=== PATIENT | female | born 1960 | race Caucasian/White ===

== ENCOUNTER 2017-02-09 09:00 | Outpatient (CLI) | payer BC | END 2017-02-09 23:59 | disposition home or self-care (01) | LOC: D.MAMMO 09:00 | DX: Z12.31 Encounter for screening mammogram for malignant neoplasm of breast (principal) ==

== ENCOUNTER 2017-07-06 13:53 | Emergency (ER) | payer OTHER, BC ==
[2017-07-06 17:52] LABS: APPEARANCE CLEAR (CLEAR); BILIRUBIN NEGATIVE (NEGATIVE); COLOR YELLOW (YELLOW); GLUCOSE NEGATIVE (NEGATIVE); KETONE NEGATIVE (NEGATIVE); NITRITE NEGATIVE (NEGATIVE); PROTEIN NEGATIVE (NEGATIVE); SPECIFIC GRAVITY 1.025 (1.005-1.020); UROBILINOGEN NORMAL (NORMAL)
[2017-07-06 17:53] LABS: BACTERIA MODERATE /hpf (NONE SEEN); EPITHELIAL CELLS 0-5 /hpf (0-5); RED CELLS - URINE 0-5 /hpf (0-5); WHITE CELLS - URINE 0-5 /hpf (0-5)
[2017-07-06 18:05] LABS: UDS - AMPHET NEGATIVE QUAL (NEGATIVE); UDS - BARB NEGATIVE QUAL (NEGATIVE); UDS - BENZO NEGATIVE QUAL (NEGATIVE); UDS - COCAINE NEGATIVE QUAL (NEGATIVE); UDS - OPIATE NEGATIVE QUAL (NEGATIVE); UDS - PCP NEGATIVE QUAL (NEGATIVE); UDS - THC NEGATIVE QUAL (NEGATIVE)
== END 2017-07-06 19:15 | disposition home or self-care (01) ==
LOC: D.ER 13:53
PROVIDERS: Nurse Practitioner Family
DX: S16.1XXA Strain of muscle, fascia and tendon at neck level, initial encounter (principal); V43.52XA Car driver injured in collision with other type car in traffic accident, initial encounter; Y93.89 Activity, other specified; Y92.410 Unspecified street and highway as the place of occurrence of the external cause; S29.012A Strain of muscle and tendon of back wall of thorax, initial encounter

== ENCOUNTER → 2017-12-04 19:55 | Outpatient (CLI) | payer BC ==
[~2017-12-04 19:55] MED LIST: ACETAMINOPHEN500 M1 PO; EFFEXOR XR150 MG PO; HYDROCODONE-APA1 TAB PO
[2018-01-11 09:31] VITALS: BMI 34.0
== END | disposition home or self-care (01) ==
LOC: D.MAMMO 13:00
DX: R92.8 Other abnormal and inconclusive findings on diagnostic imaging of breast (principal); N64.4 Mastodynia

== ENCOUNTER → 2017-12-20 23:14 | Outpatient (CLI) | payer BC ==
[2018-01-11 09:31] VITALS: BMI 34.0
== END | disposition home or self-care (01) ==
LOC: D.MAMMO 08:00
DX: N63.20 Unspecified lump in the left breast, unspecified quadrant (principal)

== ENCOUNTER 2018-01-10 05:43 | Day surgery (SDC) | payer BC ==
[~2018-01-10] VITALS: Ht 170.2 cm; Wt 98.4 kg
[2018-01-10] VITALS (11 sets, daily range): BP systolic 104–139; BP diastolic 54–92; BMI 33.7; BMI 34.0
--- NOTE | ~2018-01-10 | OP ---
PATIENT NAME: MUKUL GARNER MEDICAL RECORD: [id number] :56 LOCATION:[facility] ADMISSION DATE: SURGEON: CESAR VILLASENOR MD DATE OF OPERATION: 01/10/2018 PREOPERATIVE DIAGNOSES: 1. Left breast cancer. 2. Depressive disorder. POSTOPERATIVE DIAGNOSES: 1. Left breast cancer. 2. Depressive disorder. 3. Secondary metastatic breast cancer in the left axilla. PROCEDURE: Left simple mastectomy with left axillary lymph node dissection. SURGEON: Cesar Villasenor MD REPORT OF PROCEDURE: The patient's left chest and axilla were prepped and draped in sterile fashion. An ovoid incision was made around the patient's breast, incorporating the patient's nipple areolar complex. Electrocautery was used to dissect the subcutaneous tissues and making very thin flaps on the top and the bottom because the patient's mass was quite large and appeared to be relatively close to the skin edge in the upper outer quadrants. I continued this dissection all the way around the breast and was eventually able to take the breast all the way off of the pectoral fascia from the sternum to the superior aspect of the abdominal muscles proceeding to the clavicle and over to the axilla. Once I had the breast removed, it was sent off for permanent specimen. I felt in the patient's axilla, there were multiple very firm lymph nodes compatible with recent PET CT scan, which looked to be evident for metastatic disease. I went ahead and elected to just perform an axillary lymph node dissection. We continued our dissection for the first and second level lymph nodes incorporating all grossly positive lymph nodes and fatty tissue in that plane. I was able to find the long thoracic, thoracodorsal, and median pectoral nerves and all of these were preserved. Once the specimen was removed, I inspected the remainder of the axilla and felt no other grossly positive lymph nodes up to level 3. We then irrigated out all the wounds with sterile water. Any bleeding that was found was treated with clips, cautery, or suture ligation. At the conclusion of the case, there was no sign of any active bleeding present. Two 10 flat CONSTANTINO drains were inserted. The inferior and anterior one was inserted over the pectoral muscle and the superior posterior one was placed in the axilla. At this point, these were sutured into place with 3-0 nylons. We then reapproximated the subcutaneous tissue with multiple interrupted 3-0 Vicryls and the skin incision was closed with rashad. COMPLICATIONS: None. CONDITION: Stable. ANESTHESIA: General endotracheal. BLOOD LOSS: 150 mL. TRANSINT:[id number] Voice Confirmation ID: [id number] DOCUMENT ID: [id number] OPERATIVE REPORT [id number] MUKUL GARNER CHRISTIAN MD at 2259 CC: BRANDY HENLEY MD and ISAAK OBRIEN [id number] DICTATION DATE: 01/10/18 1415 ACT TUTOR: 01/10/18 1430 [facility] 01/11/18 [facility] [address] [place] [address]
[~2018-01-10 05:43] MED LIST changes: -HYDROCODONE-APA1 TAB PO
[2018-01-10 06:06] LABS: BASOPHILS 0.2 % (0-2); EOSINOPHILS 2.6 % (0-7); HEMATOCRIT 43.5 % (36.0-48.0); HEMOGLOBIN 14.2 g/dL (12-16); IMMATURE GRANULOCYTES 0.2 % (0-5); LYMPHOCYTES 27.1 % (15-50); MCH 30.9 pg (26.0-34.0); MCHC 32.6 g/dL (31.0-37.0); MCV 94.8 fL (80.0-100.0); MEAN PLATELET VOLUME 10.9 fL (7.4-10.4); MONOCYTES 7.3 % (2-11); NEUTROPHILS 62.6 % (40-80); PLATELET COUNT 193 10x3/uL (130-400); RBC 4.59 10x6/uL (4.00-5.40); RDW 13.7 % (11.5-14.5); WBC 4.7 10x3/uL (4.8-10.8)
[2018-01-10 06:22] LABS: INR 0.97 (0.85-1.17); PROTIME 12.5 SECONDS (11.6-15.0)
[2018-01-11 04:00] VITALS: BP 128/69
[2018-01-11 05:15] LABS: CALCIUM 8.3 mg/dL (8.5-10.1); CARBON DIOXIDE 32.7 mmol/L (21.0-32.0); CREATININE - SERUM 1.1 mg/dL (0.6-1.3); HEMATOCRIT 37.7 % (36.0-48.0); HEMOGLOBIN 12.4 g/dL (12-16); LYMPHOCYTES 12.6 % (15-50); MCH 30.8 pg (26.0-34.0); MCHC 32.9 g/dL (31.0-37.0); MCV 93.5 fL (80.0-100.0); MEAN PLATELET VOLUME 10.5 fL (7.4-10.4); NEUTROPHILS 78.8 % (40-80); PLATELET COUNT 162 10x3/uL (130-400); POTASSIUM - SERUM 3.7 mmol/L (3.5-5.1); RBC 4.03 10x6/uL (4.00-5.40); RDW 13.2 % (11.5-14.5)
[2018-01-11 05:16] LABS: WBC 7.3 10x3/uL (4.8-10.8)
[2018-01-11 08:34] VITALS: BP 108/62
[2018-01-11 09:31] VITALS: Ht 170.2 cm; Wt 98.4 kg
[2018-01-11] MEDS ORDERED: HYDROCODONE-APA1 TAB PO (09:39)
== END 2018-01-11 11:44 | disposition home or self-care (01) ==
LOC: D.OPS 05:43 → D.MS 05:43 → D.PAN 07:30 → D.OPS 07:30 → D.NM 07:30 → D.MS 15:23 → D.OPS 01-11 11:44
PROVIDERS: Anesthesiology; Surgery
DX: C50.912 Malignant neoplasm of unspecified site of left female breast (principal); C77.3 Secondary and unspecified malignant neoplasm of axilla and upper limb lymph nodes; Z01.812 Encounter for preprocedural laboratory examination; F32.9 Major depressive disorder, single episode, unspecified

== ENCOUNTER 2018-02-05 06:47 | Day surgery (SDC) | payer BC ==
[~2018-02-05] VITALS: Ht 170.2 cm; Wt 97.1 kg
--- NOTE | ~2018-02-05 | OP ---
PATIENT NAME: MUKUL GARNER MEDICAL RECORD: [id number] :56 LOCATION:[facility] ADMISSION DATE: SURGEON: CESAR VILLASENOR MD DATE OF OPERATION: 02/05/2018 PREOPERATIVE DIAGNOSES: 1. Metastatic breast cancer. 2. Depressive disorder. POSTOPERATIVE DIAGNOSES: 1. Metastatic breast cancer. 2. Depressive disorder. PROCEDURES: 1. Right subclavian vein port placement. 2. Fluoroscopic interpretation. SURGEON: Cesar Villasenor MD REPORT OF PROCEDURE: The patient's right chest was prepped and draped in sterile fashion. A needle was used to cannulate the right subclavian vein. A guidewire was advanced with ease. Fluoro was used to note that the wire was in good position in the venous system. A skin incision was made on the right superolateral chest and a subcutaneous pouch was made over the pectoral fascia. The catheter was tunneled between this pouch and the wire exit site. The port was then sutured to the pectoral fascia using interrupted 2-0 Prolene to skin with 2-0 Prolenes times 2. The catheter was cut with a beveled tip at 21 cm. The dilator trocar device was then placed over the wire and the wire and dilator were removed. The catheter tip was advanced through the trocar and the trocar was then removed. The catheter tip was noted to be resting in good position in the superior vena cava. The catheter aspirated of nonpulsatile dark blood and flushed easily with heparinized saline. The subcutaneous tissues were reapproximated with interrupted 3-0 Vicryl and the skin was closed with running subcutaneous 5-0 Monocryl. COMPLICATIONS: None. CONDITION: Stable. ANESTHESIA: General endotracheal. BLOOD LOSS: Minimal. TRANSINT:[id number] Voice Confirmation ID: [id number] DOCUMENT ID: [id number] OPERATIVE REPORT [id number] MUKUL GARNER CESAR VILLASENOR MD at 1409 CC: MARJ CROWDER MD and BRANDY HENLEY MD [id number] DICTATION DATE: 02/05/18 1007 CLINICAL PROGRAM CONSULTANT: 02/05/18 1305 [facility] [place] 02/05/18 [place] [address]
[~2018-02-05 06:47] MED LIST changes: +GABAPENTIN100 MG PO; +HYDROCODONE-APA1 TAB PO
[2018-02-05 07:10] LABS: BASOPHILS 0.3 % (0-2); HEMATOCRIT 40.9 % (36.0-48.0); HEMOGLOBIN 13.2 g/dL (12-16); IMMATURE GRANULOCYTES 0.3 % (0-5); LYMPHOCYTES 26.1 % (15-50); MCH 30.9 pg (26.0-34.0); MCHC 32.3 g/dL (31.0-37.0); MCV 95.8 fL (80.0-100.0); MEAN PLATELET VOLUME 10.8 fL (7.4-10.4); NEUTROPHILS 59.3 % (40-80); PLATELET COUNT 177 10x3/uL (130-400); RBC 4.27 10x6/uL (4.00-5.40); WBC 3.7 10x3/uL (4.8-10.8)
[2018-02-05 07:42] LABS: INR 0.91 (0.85-1.17); PROTIME 11.9 SECONDS (11.6-15.0)
[2018-02-05 08:04] LABS: APTT 24.3 SECONDS (22.8-39.4)
[2018-02-05 08:23] VITALS: BP 130/72; Ht 170.2 cm; Wt 97.1 kg
[2018-02-05] MEDS ORDERED: NORCO 10-325 TA1 TAB PO (10:04)
== END 2018-02-05 12:35 | disposition home or self-care (01) ==
LOC: D.OPS 06:47 → D.PAN 09:20 → D.OPS 09:20
PROVIDERS: Anesthesiology
DX: C50.919 Malignant neoplasm of unspecified site of unspecified female breast (principal); C79.9 Secondary malignant neoplasm of unspecified site; F32.9 Major depressive disorder, single episode, unspecified; Z01.812 Encounter for preprocedural laboratory examination

== ENCOUNTER → 2018-02-13 08:43 | Outpatient (CLI) | payer BC ==
[2018-02-05 08:23] VITALS: BMI 33.6
--- NOTE | ~2018-02-13 | EC ---
PATIENT:MUKUL GARNER DATE OF SERVICE: 02/13/18 SEX: F MEDICAL RECORD: [id number] DATE OF : 56 [facility] AGE OF PATIENT: 57 ADMISSION DATE: 02/13/18 REFERRING PHYSICIAN: INTERPRETING PHYSICIAN: GRACIE HERNANDEZ MD ECHOCARDIOGRAM REPORT ECHO CHARGES 4 ECHO COMPLETE Date: 02/13/18 CLINICAL DIAGNOSIS: CHEMOTHERAPY ECHOCARDIOGRAPHIC MEASUREMENTS (adult normal given) AC root (d.<3.7cm) 3.1 cm LV Septum d (<1.2 cm> 1.1 cm Valve Excursion 2.0 cm LV Septum (systole) 1.2 cm Left Atria (s.<4.0cm> 2.8 cm LVPW d(<1.2cm) 1.1 cm RV (d.<2.3cm) 2.5 cm LVPW (sytole) 1.2 cm LV diastole(<5.6CM) 4.6 cm MV E-F(>70mm/sec) cm LV systole 3.8 cm LVOT Diameter 1.9 cm MV exc.(>10mm) cm Est.ejection fraction (50-75%) % DOPPLER: LVIT cm/sec A 83 cm/sec E 45 cm/sec LA cm/sec RVSP 18.4 mmHg LVOT 114 cm/sec AOP1/2T m/s Asc. Ao 118 cm/sec RVOT 86 cm/sec RA cm/sec PA 110 cm/sec AV Gradient Peak 5.6 mmHg AV Mean 3.8 mmHg AV Area 2.7 cm MV Gradient Peak 2.8 mmHg MV Mean 1.4 mmHg MV Area cm COMMENTS: Hand Shoes Sewer: Rober OMALLEY Foreign Broadcast Specialist: Latasha Hernandez TAPE# PACS Pericardial Effusion N DATE OF SERVICE: 02/13/2018 PROCEDURE: Echocardiogram. FINDINGS: 1. Left ventricular chamber size is within normal limits. Left ventricular systolic function is normal. Overall ejection fraction estimated at 65%. 2. Left atrium, right atrium, and right ventricle chamber size is within normal limits. 3. Valvular structures have normal structure and motion. ECHOCARDIOGRAM REPORT [id number] MUKUL GARNER 4. Doppler interrogation reveals only trace tricuspid regurgitation, no other valvular insufficiency or stenosis and pulmonary systolic pressure is estimated at 18 mmHg. 5. No evidence of pericardial effusion or left ventricular thrombus. TRANSINT:[id number] Voice Confirmation ID: [id number] DOCUMENT ID: [id number] GRACIE HERNANDEZ MD at 0924 CC: [id number] DICTATION DATE: 02/13/18 1200 [place]OS[place] COACH: 02/13/18 1209 [facility] CLI 02/13/18 [place] [id number] [place] [id number]
[~2018-02-13 08:43] MED LIST changes: +NORCO 10-325 TA1 TAB PO
== END | disposition home or self-care (01) ==
LOC: D.ECHO 08:43
DX: I74.4 Embolism and thrombosis of arteries of extremities, unspecified (principal); C50.412 Malignant neoplasm of upper-outer quadrant of left female breast

== ENCOUNTER → 2018-10-02 10:49 | Outpatient (CLI) | payer BC ==
[2018-02-05 08:23] VITALS: BMI 33.6
== END | disposition home or self-care (01) ==
LOC: D.HCCARDIO 10:49
PROVIDERS: ATTEND Internal Medicine Cardiovascular Disease
DX: I20.9 Angina pectoris, unspecified (principal)

== ENCOUNTER 2018-10-21 12:04 | Outpatient (CLI) | payer BC ==
[~2018-10-21] VITALS: Ht 170.2 cm; Wt 95.9 kg
--- NOTE | ~2018-10-21 | HEMODYNAMI ---
PATIENT:MUKUL GARNER MEDICAL RECORD: [id number] : 56 LOCATION:[facility] ADMISSION DATE: 10/21/18 Generatedon:10/21/201815:26 Patient name: MUKUL GARNER Patient #: [id number] SSN: : 1960 Date of study: 10/21/2018 Page: Of Hemodynamic Procedure Report Patient Data Patient Demographics Procedure consent was obtained First Name: MUKUL Gender: Female Last Name: PATSY : 1960 [facility] Initial: DELMI Age: 58 year(s) Patient #: [id number] Race: Unknown Additional ID: [id number] Contact details [address]: [address] [place] [address] [place] State: [place] City: [place] Zip code: [address] Past Medical History Allergies: No known allergies Admission Admission Data Admission Date: 10/21/2018 Admission Time: 12:04 Lab Results Lab Result Date: 10/21/2018 Lab Result Time: 0:00 Biochemistry Name Units Result Min Max BUN mg/dl 19 --(----)*- 7 18 Creatinine mg/dl 1 --(--*-)-- 0.6 1.3 CBC Name Units Result Min Max Hemoglobin g/dl 13.3 -*(----)-- 13.5 17.5 Procedure Procedure Types Cath Procedure Diagnostic Procedure [facility] w/[facility] Procedure Description Procedure Date Procedure Date: 10/21/2018 Procedure Start Time: 15:13 Procedure End Time: 15:23 Procedure Staff Name Function Adam Francisco MD Performing Physician Tianna Bernabe RT Monitor Anne Marie Aguilar RT Scrub Suzanna Rose RN Nurse Procedure Data Cath Procedure Fluoroscopy Diagnostic fluoroscopy Total fluoroscopy Time: 1.3 time: 1.3 min min Diagnostic fluoroscopy Total fluoroscopy dose: 322 dose: 322 mGy mGy Contrast Material Contrast Material Type Amount (ml) Isovue 300 42 Entry Location Entry Primary Successful Side Size Upsize Upsize Entry Closure Succes sful Closure Location (Fr) 1 (Fr) 2 (Fr) Remarks Device Remarks Femoral Right 5 Fr Exoseal artery Estimated blood loss: 10 ml Diagnostic catheters Device Type Used For End Catheter Placement MULTIPACK JL 4.0 5Fr Procedure catheter MULTIPACK 3DRC 5Fr Procedure catheter MULTIPACK Pigtail 5 Fr Procedure catheter Procedure Complications No complications Procedure Medications Medication Administration Route Dosage Oxygen etCO2 Nasal cannula 2 l/min Heparin Flush Bag added to field 2 bags (1000units/500ml NS) 0.9% NaCl I.V. 100 ml/hr Lidocaine 2% added to field 20 Fentanyl I.V. 50 mcg Versed I.V. 1 mg Fentanyl I.V. 50 mcg Versed I.V. 1 mg Hemodynamics Rest HGB: 13.3 (g/dl) Heart Rate: 67 (bpm) Pressure Samples Time Site Value (mmHg) Purpose Heart Use Rate(bpm) 15:20 LV 89/4,9 Snapshot 72 Gradients Valve Time Site Site Mean SEP/DFP Peak To Heart Use 1 2 (mmHg) (sec/min) Peak Rate (mmHg) (bpm) Aortic 15:21 LV AO 73 Snapshots Pre Cath Intra NCS Post Cath Vital Signs Time Heart Resp SPO2 etCO2 NIBP (mmHg) Rhythm Pain Sedation Rate (ipm) (%) (mmHg) Status Level (bpm) 15:02:32 68 18 96 37.3 120/72(88) NSR 0 (11) 10(A) , No pain 15:06:30 68 18 95 25.4 123/65(87) NSR 0 (11) 10(A) , No pain 15:11:00 68 16 96 19.4 133/64(86) NSR 0 (11) 9(A) , No pain 15:15:37 70 16 96 33.6 103/66(90) NSR 0 (11) 9(A) , No pain 15:20:54 69 17 94 32.9 130/62(114) NSR 0 (11) 9(A) , No pain 15:25:29 72 17 96 36.6 136/72(97) NSR 0 (11) 9(A) , No pain Medications Time Medication Route Dose Verified Delivered Reason Notes Eff ectiveness by by 15:07:56 Oxygen etCO2 2 Adam Suzanna Per Nasal l/min Nolan Rose physician cannula RN 15:08:08 Heparin Flush added 2 Adam Suzanna used for Bag to bags Francisco MD Milton procedure (1000units/500ml field RN NS) 15:08:18 0.9% NaCl I.V. 100 Adam Suzanna Per ml/hr Nolan Rose physician RN 15:08:26 Lidocaine 2% added 20ml Adam Suzanna for local to vial Nolan Rose anesthetic field RN 15:08:36 Fentanyl I.V. 50 Adam Suzanna for mcg Nolan Rose sedation RN 15:08:42 Versed I.V. 1 mg Adam Suzanna for Nolan Rose sedation RN 15:16:06 Fentanyl I.V. 50 Adam Suzanna for mcg Nolan Rose sedation RN 15:16:09 Versed I.V. 1 mg Adam Suzanna for Nolan Rose sedation type cutter Log Time Note 14:40:16 Tianna Bernabe RT(R) sent for patient. Start room use. 14:40:17 Time tracking: Regular hours (M-F 7:00 - 5:00) 14:40:21 Plan of Care:Hemodynamics will remain stable., Cardiac rhythm will remain stable., Comfort level will be maintained., Respiratory function will remain adequate., Patient/ family verbilizes understanding of procedure., Procedure tolerated without complication., Recovers from procedure without complications.. 14:52:38 Signed procedure consent form obtained from patient. 14:52:40 Diagnostic Cath status Elective 14:53:52 Patient received from Pre/Post Procedure Room to CCL 2 Alert and oriented. Tansferred to table in Supine position. 14:53:53 Warm blankets applied, and felix hugger turned on for patient comfort. 14:53:53 Correct patient and procedure confirmed by team. 14:53:54 ECG and BP/O2 sat monitors applied to patient. 14:54:03 H&P Date Dictated: 09/24/2018 Within 30 days and on chart., H&P Addendum completed by physician on day of procedure. (MUST COMPLETE FOR ALL OUTPATIENTS). 14:54:09 Patient allergic to No known allergies 15:01:42 Vital chart was started 15:01:43 Baseline sample Acquired. 15:01:52 Rhythm: sinus rhythm 15:01:54 Full Disclosure recording started 15:01:55 Pre-procedure instructions explained to patient. 15:01:55 Pre-op teaching completed and patient verbalized understanding. 15:01:56 Family in waiting room. 15:01:57 Patient NPO since Breakfast. 15:01:59 Is the patient allergic to Iodine/contrast media? No. 15:02:06 Is patient on blood thinner?No 15:02:14 Patient diabetic? No. 15:02:17 Previous problem with sedation/anesthesia? No ? 15:02:18 Snore? Yes 15:02:19 Sleep apnea? No 15:02:20 Deviated septum? No 15:02:20 Opens mouth fully? Yes 15:02:21 Sticks out tongue? Yes 15:02:22 Airway obstruction? No ? 15:02:24 Dentures? No ? 15:02:28 Pre procedure: right dorsailis pedis pulse 1+ Palpable, but thready & weak; easily obliterated 15:02:30 Patient pain scale 0/10 ?. 15:02:40 IV patent on arrival in right forearm with 0.9% NaCl at [facility]. 15:04:09 Lab Result : BUN 19 mg/dl 15:04:09 Lab Result : Creatinine 1 mg/dl 15:04:09 Lab Result : Hemoglobin 13.3 g/dl 15:04:20 Lab results completed and on chart. 15:04:24 Right groin area was prepped with chlora-prep and draped in sterile fashion 15:04:25 Alarms reviewed by R. N. 15:04:25 Sharps counted by scrub and verified by R.N. 15:04:26 Physician paged 15:04:33 Use device set Femoral Dx 15:04:34 ACIST Syringe (20566) opened to sterile field. 15:04:35 Bag Decanter (2002) opened to sterile field. 15:04:35 Medline Cath Pack ([id number]) opened to sterile field. 15:04:36 DIAGNOSTIC WIRE .035 260cm J wire ([id number]) opened to sterile field. 15:04:37 ACIST Hand Control (29608) opened to sterile field. 15:04:37 ACIST Manifold (97320) opened to sterile field. 15:04:38 DIAGNOSTIC Multipack 5Fr catheter set ([id number]) opened to sterile field. 15:04:40 SHEATH 5FR Ambrose ([id number]) opened to sterile field. 15:06:54 Physician arrived 15:06:55 --------ALL STOP TIME OUT------ 15:06:56 Final Timeout: patient, procedure, and site verified with staff and physician. All members of the team are in agreement. 15:06:58 Right groin site verified by team. 15:07:02 Maximum allowable Isovue 300 dose 300ml. Physician notified. (300ml for normal creatinines. For patients with creatinine of 1.7 or higher multiply weight(kg) x 5 divided by creatinine.) 15:07:06 Fire Safety Assessment: A--An alcohol-based skin anteseptic being used preoperatively., C--Open oxygen or nitrous oxide is being used., D--An ESU, laser, or fiber-optic light is being used. 15:07:11 Physical assessment completed. ASA score P 2 - A patient with mild systemic disease as per Adam Francisco MD. 15:07:15 Sedation plan: IV Moderate Sedation Medication:Versed, Fentanyl 15::43 Zero performed for pressure channel P1 15::56 Oxygen 2 l/min etCO2 Nasal cannula was administered by Suzanna Rose RN; Per physician; 15:08:08 Heparin Flush Bag (1000units/500ml NS) 2 bags added to field was administered by Suzanna Rose RN; used for procedure; 15:08:18 0.9% NaCl 100 ml/hr I.V. was administered by Suzanna Rose RN; Per physician; 15:08:26 Lidocaine 2% 20ml vial added to field was administered by Suzanna Rose RN; for local anesthetic; 15:08:36 Fentanyl 50 mcg I.V. was administered by Suzanna Rose RN; for sedation; 15:08:42 Versed 1 mg I.V. was administered by Suzanna Rose RN; for sedation; 15::43 Pre procedure: right dorsailis pedis pulse Doppler 15:11:19 Zero performed for pressure channel P1 15:13:34 Procedure started. 15:13:42 Local anesthetic to right femoral artery with Lidocaine 2% by Adam Francisco MD.INITIAL ACCESS ONLY 15:15:41 A 5 Fr sheath was inserted into the Right Femoral artery 15:15:46 J wire advanced. 15:16:06 Fentanyl 50 mcg I.V. was administered by Suzanna Rose RN; for sedation; 15:16:08 A MULTIPACK JL 4.0 5Fr catheter was advanced over the wire and used for Procedure. 15:16:09 Versed 1 mg I.V. was administered by Suzanna Rose RN; for sedation; 15:16:13 LCA angiography performed. 15:17:56 Catheter removed. 15:18:25 A MULTIPACK 3DRC 5Fr catheter was advanced over the wire and used for Procedure. 15:19:14 RCA angiography performed. 15:19:15 Catheter removed. 15:19:24 A MULTIPACK Pigtail 5 Fr catheter was advanced over the wire and used for Procedure. 15:20:07 LV angiography performed. 15:20:58 EF : 60 % 15:21:03 Catheter removed. 15:21:28 EXOSEAL 5Fr (EX500) opened to sterile field. 15:21:29 Tegaderm 4 x 4 (1626W) opened to sterile field. 15:21:41 Sheath removed intact; hemostasis achieved with Exoseal to the Right Femoral artery. 15:21:50 Procedure ended.(Physican Out) 15:22:00 Fluoroscopy time 01.30 minutes. 15:22:05 Fluoroscopy dose: 322 mGy 15:22:05 Flurop Dose total: 322 15:22:12 Contrast amount:Isovue 300 42ml. 15:22:15 Insertion/operative site no bleeding no hematoma. 15:22:17 Post Procedure Pulses reassessed and unchanged 15:22:20 Post procedure rhythm: unchanged. 15:22:23 Estimated blood loss: 10 ml 15:22:25 Post procedure instruction explained to patient.Patient verbalizes understanding. 15:22:30 Procedure and supply charges have been captured, reviewed, submitted and are correct. 15:22:51 Procedure Complication : No complications 15:22:55 Vital chart was stopped 15:22:56 See physician's report for complete and final results. 15::58 Report given to Pre/Post Procedure Room. 15:23:00 Patient transfered to Pre/Post Procedure Room with Stretcher. 15:23:03 Procedure ended. 15:23:03 Full Disclosure recording stopped 15:23:07 End room use (Document Last) Device Usage Item Name Manufacture Quantity Catalog Hospital Part Current Minimal L ot# / Number Charge Number Stock Stock Serial# Code ACIST Acist 1 06966 991221 015678 263891 20 Syringe Medical (59018) Systems Inc Bag Microtek 1 2001S 614258 61820 021132 5 Decanter Medical Inc. () Medline Medline 1 [id number] 574772 23435 300427 5 Cath Pack ([id number]) DIAGNOSTIC St Darrel 1 720678 884101 800451 455775 30 WIRE .035 260cm J wire (919633) ACIST Hand Acist 1 20859 950189 050491 005705 5 Control Medical (06745) Systems Inc ACIST Acist 1 46027 439459 280157 433952 5 Manifold Medical (95805) Systems Inc DIAGNOSTIC Cardinal 1 QW9525 254876 74377 387804 30 Multipack Health 5Fr catheter set (PO2068) SHEATH 5FR Terumo 1 WEW046 695955 335740 119226 5 Ambrose (IWD477) MULTIPACK Cardinal 1 419872 5 JL 4.0 5Fr Health catheter MULTIPACK Cardinal 1 921472 5 3DRC 5Fr Health catheter MULTIPACK Cardinal 1 811057 5 Pigtail 5 Health Fr catheter EXOSEAL 5Fr Cardinal 1 EX500 481420 756474 710046 10 (EX500) Health Tegaderm 4 3M 1 1626W 800786 720993 440410 5 x 4 (1626W) Signature Audit Barnett Stage Time Signature Unsigned Intra-Procedure 10/21/2018 iTanna Bernabe 3:26:01 PM RT(R) Signatures Monitor : Tianna Bernabe Signature : RT Date : Time : [place] [id number] [place] [address]
[2018-10-21] MEDS ORDERED: ELIQUIS5 MG PO (12:17)
[2018-10-21] MEDS ORDERED: PREMARIN1.25 MG PO (12:17)
[2018-10-21] MEDS ORDERED: XANAX0.25 MG PO (12:18)
[2018-10-21 12:25] VITALS: BP 157/79; Ht 170.2 cm; Wt 95.9 kg
[2018-10-21 12:39] LABS: BASOPHILS 0.2 % (0-2); HEMATOCRIT 40.1 % (36.0-48.0); HEMOGLOBIN 13.3 g/dL (12-16); IMMATURE GRANULOCYTES 0.4 % (0-5); LYMPHOCYTES 14.7 % (15-50); MCH 32.8 pg (26.0-34.0); MCHC 33.2 g/dL (31.0-37.0); MCV 98.8 fL (80.0-100.0); MEAN PLATELET VOLUME 10.3 fL (7.4-10.4); MONOCYTES 7.6 % (2-11); NEUTROPHILS 76.1 % (40-80); PLATELET COUNT 172 10x3/uL (130-400); RBC 4.06 10x6/uL (4.00-5.40); WBC 5.1 10x3/uL (4.8-10.8)
[2018-10-21 12:50] LABS: ANION GAP 9.6 mmol/L (8-16); CALCIUM 9.4 mg/dL (8.5-10.1); CARBON DIOXIDE 25.3 mmol/L (21.0-32.0); POTASSIUM - SERUM 3.9 mmol/L (3.5-5.1)
--- NOTE | 2018-10-21 15:35 | NUR ---
PATIENT ARRIVED TO ROOM 5, PLACED ON 2L NC AND CM. VSS. RIGHT GROIN DRESSING IS CDI, NO S/S OF BLEEDING OR HEMATOMA. WILL CONTINUE TO MONITOR.
--- NOTE | 2018-10-21 15:50 | NUR ---
PHYSICIAN AT BEDSIDE TO UPDATE PATIENT AND FRIEND. VSS ON 2L NC. RIGHT GROIN DRESSING IS CDI, NO S/S OF BLEEDING OR HEMATOMA. WILL CONTINUE TO MONITOR.
--- NOTE | 2018-10-21 16:20 | NUR ---
HEAD OF BED ELEVATED TO 30 DEGREES, RIGHT GROIN DRESSING IS CDI, NO S/S OF BLEEDING OR HEMATOMA. NO C/O PAIN, NUMBNESS, OR TINGLING. PATIENT GIVEN TURKEY SANDWICH, NO N/V. VSS ON ROOM AIR.
--- NOTE | 2018-10-21 16:50 | NUR ---
HEAD OF BED AT 60 DEGREES, RIGHT GROIN DRESSING IS CDI, NO S/S OF BLEEDING OR HEMATOMA. NO C/O PAIN, NUMBNESS, OR TINGLING. PATIENT TOLERATING PO FLUIDS AND FOOD, NO N/V. VSS ON ROOM AIR.
--- NOTE | 2018-10-21 17:20 | NUR ---
IV REMOVED. RIGHT GROIN DRESSING IS CDI, NO S/S OF BLEEDING OR HEMATOMA. WRITTEN AND VERBAL EDUCATION GIVEN TO PATIENT REGARDING DISCHARGE INSTRUCTIONS AND MEDICATION COMPLIANCE, PATIENT VERBALIZES UNDERSTANDING. VSS ON ROOM AIR. PATIENT GETTING DRESSED.
--- NOTE | 2018-10-21 17:25 | NUR ---
PATIENT VOIDED WITHOUT DIFFICULTY. PATIENT TRANSPORTED VIA WHEELCHAIR TO CAR WITH FRIEND DRIVING, ALL BELONGINGS WITH PATIENT.
== END 2018-10-21 17:25 ==
LOC: D.CATH 12:04
PROVIDERS: ATTEND Internal Medicine Cardiovascular Disease
DX: R07.9 Chest pain, unspecified (principal); Z01.812 Encounter for preprocedural laboratory examination